=== PATIENT | female | born 1990 | race Hispanic/Latino ===

== ENCOUNTER → 2019-10-03 | Day surgery (SDC) | payer BC ==
[~2019-10-03] MED LIST: ACETAMINOPHEN 1000 MG/100 ML IV ONE; ASHWAGANDA PO; BLACK SEED OIL PO; BUPIVACAINE 0.25%/EPI 30ML SDV INJ ONE; DEXAMETHASONE SOD PHOS INJ 4 MG/ML VIAL ONE; FENTANYL CITRATE/PF 100MCG/2 ML INJ ONE; FISH OIL 1,2001 EAC6 PO; LIDOCAINE HCL 2% LOCAL INJ 5 ML SDV VIAL INJ ONE; MACA ROOT5 GM PO; MIDAZOLAM HCL 2 MG/2 ML VIAL ONE; MYO INOSITOL PO; ONDANSETRON HCL INJ 2MG/ML 2ML 2 MG/ML VIAL ONE; PROPOFOL IV EMULSION 10 MG/ML 20 ML VIAL ONE; SEVOFLURANE INHAL SOLN 250 ML PEN BTL ONE; VITAMIN B12 PO; VITAMIN D1000 UNI1 PO; [UNRECOGNIZED DRUG - OTHER] PO; [UNRECOGNIZED DRUG - OTHER] PO
[2019-10-03 09:50] VITALS: BP 129/82
--- NOTE | 2019-10-03 16:24 | Operative Report ---
DATE OF PROCEDURE: SURGEON: Linda Mandel MD PREOPERATIVE DIAGNOSES: 1. Pelvic pain. 2. Abnormal uterine bleeding. POSTOPERATIVE DIAGNOSES: 1. Pelvic pain. 2. Abnormal uterine bleeding. PROCEDURES: 1. Hysteroscopy. 2. Incision and drainage. 3. Polypectomy. COMPLICATIONS: None. ESTIMATED BLOOD LOSS: Minimal. PROCEDURE IN DETAIL: The patient was taken to the OR. General anesthesia was induced. She was prepped and draped in a normal sterile fashion, placed in dorsal lithotomy position. Examination under anesthesia revealed anteverted uterus, mobile, and no adnexal masses. Cavity length measured about 7 cm. A weighted speculum was placed inside the vagina. Cervix was grasped with Allis clamp and dilated to Hegar 8. Hysteroscope was introduced using the TruClear device and showed normal cavity apart from 0.5 cm polyp on the lower segment, using the TruClear shaver that was removed without difficulty. Hemostasis was found to be adequate. The patient tolerated the procedure well. Lap, instruments, and needle counts were correct x2 at the end of the procedure. Linda Mandel MD DD/DIDIL /[id number]
== END | disposition home or self-care (01) ==
LOC: OR 05:32
PROVIDERS: ATTEND Obstetrics & Gynecology
DX: N84.0 Polyp of corpus uteri (principal); D25.0 Submucous leiomyoma of uterus; Z01.812 Encounter for preprocedural laboratory examination; Z91.011 Allergy to milk products; J45.909 Unspecified asthma, uncomplicated; R10.2 Pelvic and perineal pain; N93.9 Abnormal uterine and vaginal bleeding, unspecified
CPT/HCPCS: 36415; 58558; 84702; 88305; J0131; J1100; J2001; J2250; J2405; J2704; J3010